=== PATIENT | female | born 2000 | race Caucasian/White ===

== ENCOUNTER 2022-06-27 18:36 | Emergency (ER) | payer MEDICAID ==
[~2022-06-27] VITALS: Ht 162.6 cm; Wt 66.7 kg
[2022-06-27 19:54] VITALS: BP 118/76
[2022-06-27] MEDS ORDERED: CEPHALEXIN MONOHYDRATE 500 MG CAPSULE PO ONE ×2 (19:59→20:00)
[2022-06-27] MEDS ORDERED: IBUPROFEN 600 MG TABLET ONE (19:59)
[2022-06-27] MEDS ORDERED: IBUPROFEN 600 MG TABLET PO ONE (20:00)
[2022-06-27] MEDS ORDERED: LIDOCAINE VISCOUS 2% UD 15 ML UDC MM ONE (20:00)
[2022-06-27] MEDS ORDERED: CEPH500C2 PO (20:09)
[2022-06-27] MEDS ORDERED: LIDOCAINE VISCOUS 2% UD 15 ML UDC ONE (20:18)
== END 2022-06-27 20:31 | disposition home or self-care (01) ==
LOC: ER 18:44
DX: L03.113 Cellulitis of right upper limb (principal)

== ENCOUNTER 2023-11-12 19:06 | Emergency (ER) | payer MEDICAID ==
[~2023-11-12] VITALS: Ht 167.6 cm; Wt 74.4 kg
[~2023-11-12 19:06] MED LIST: CEPH500C2 PO
[2023-11-12] MEDS ORDERED: CEPHALEXIN MONOHYDRATE 500 MG CAPSULE PO ONE (20:49)
[2023-11-12] MEDS: CEPHALEXIN MONOHYDRATE 500 MG CAPSULE PO ONE (20:49)
[2023-11-12] MEDS: ASPIRIN 81 MG TAB.CHEW PO ONE (20:49)
[2023-11-12] MEDS ORDERED: ASPIRIN EC 81 MG TABLET.DR PO ONE (20:49)
[2023-11-12] MEDS ORDERED: IBUP-1955 PO (20:51)
[2023-11-12] MEDS ORDERED: CEPH500C2 PO (20:51)
[2023-11-12 20:58] VITALS: BP 132/75; TEMP 97.6; O2SAT 100
== END 2023-11-12 20:59 | disposition home or self-care (01) ==
LOC: ER 19:10
DX: I82.611 Acute embolism and thrombosis of superficial veins of right upper extremity (principal); L03.113 Cellulitis of right upper limb
CPT/HCPCS: 93971-TC